=== PATIENT | female | born 1945 | race Caucasian/White ===

== ENCOUNTER 2019-03-30 20:11 | Emergency (ER) | payer MEDICARE, OTHER ==
[~2019-03-30] VITALS: Ht 162.6 cm; Wt 72.6 kg
--- NOTE | 2019-03-30 20:15 | NUR ---
pt here with " daughter". pt alert gcs 15. pt been c/o abd pain x 3 days had h/ohietel hernia. pt denies n/v/d/ and constipation. denies dyspnea and no acute sighns of dyspnea noted. pain rating 7. pt denies ua c/os. lungs cta bilaterally. abd soft and distended. pt has large hernia in mid abd. no pulsating massess noted. done logan pt at 2025.
--- NOTE | 2019-03-30 20:17 | NUR ---
in [facility] pt.
--- NOTE | 2019-03-30 20:34 | ED Abdominal Pain ---
General Chief Complaint: Abdominal/GI Problems Stated Complaint: UPPER ABD PAIN Nursing Triage Note: abd pain x 3 days h/o hietel hernia Sepsis Screen: No Definite Risk History of Present Illness Date Seen by Provider: Mar 30, 2019 Time Seen by Provider: 20:20 Initial Comments 73 year old female reports ambulatory for abdominal distention and pain. It has been present for 3 days and progressively getting more painful, pain a 7/10 currently. She took Ibuprofen 400 mg 1 hour ago. She ate breakfast and lunch, no associated nausea or vomiting. She had an umbilical ventral hernia repaired many years ago, no other abdominal surgeries. Timing/Duration: 3-4 Days Severity/Quality: Mild Location: Epigastric Radiation: No Radiation Activities at Onset: None Associated Symptoms: Denies Symptoms Allergies and Home Medications Allergies Coded Allergies: No Known Allergies (Verified Allergy, Unknown, 12/03/08) Patient Home Medication List Home Medication List Reviewed: Yes Review of Systems Review of Systems Constitutional: no symptoms reported, see HPI Gastrointestinal: See HPI, Abdomen Distended, Abdominal Pain; Denies Blood Streaked Stools, Denies Constipated, Denies Diarrhea, Denies Nausea, Denies Poor Appetite, Denies Rectal Bleeding, Denies Vomiting All Other Systems Reviewed Negative Unless Noted: Yes Past Wyynjac-Smxhgn-Psertk Hx Past Med/Social Hx: Reviewed Nursing Past Med/Soc Hx Patient Social History Alcohol Use: Occasionally Uses Recreational Drug Use: No Smoking Status: Current Everyday Smoker Recent Foreign Travel: No Contact w/Someone Who Travel: No Recent Infectious Disease Expo: No Physical Abuse: No Sexual Abuse: No Past Medical History Reproductive Disorders: No Physical Exam Vital Signs Vital Signs - First Documented 03/30/19 20:15 Temp 97.7 Pulse 64 Resp 16 B/P (MAP) 199/77 (117) Pulse Ox 99 O2 Delivery Room Air Capillary Refill : Less Than 3 Seconds Height/Weight/BMI Height: 5'4.00" Weight: 160lbs. oz. 72.922668ku; BMI Method:Stated General Appearance: WD/WN, no apparent distress HEENT: PERRL/EOMI, normal ENT inspection, TMs normal, pharynx normal Neck: non-tender, full range of motion, supple, normal inspection Respiratory: chest non-tender, lungs clear, normal breath sounds Cardiovascular: normal peripheral pulses, regular rate, rhythm Gastrointestinal: normal bowel sounds, soft, distended; No rebound; tenderness, hernia (epigastric, ventral. Obvious on exam when sitting upright, reduces when patient supine. Mild tenderness, nonpulsatile. ) Extremities: normal range of motion, non-tender, no pedal edema, normal ca pillary refill Neurologic/Psychiatric: no motor/sensory deficits, alert, normal mood/affect, oriented x 3 Progress/Results/Core Measures Results/Orders Lab Results Laboratory Tests Test 03/30/19 20:25 Range/Units White Blood Count 13.4 H 4.3-11.0 10^3/uL Red Blood Count 4.65 4.35-5.85 10^6/uL Hemoglobin 14.2 11.5-16.0 G/DL Hematocrit 42 35-52 % Mean Corpuscular Volume 91 80-99 FL Mean Corpuscular Hemoglobin 31 25-34 PG Mean Corpuscular Hemoglobin Concent 34 32-36 G/DL Red Cell Distribution Width 13.2 10.0-14.5 % Platelet Count 244 130-400 10^3/uL Mean Platelet Volume 10.5 H 7.4-10.4 FL Neutrophils (%) (Auto) 75 42-75 % Lymphocytes (%) (Auto) 17 12-44 % Monocytes (%) (Auto) 7 0-12 % Eosinophils (%) (Auto) 1 0-10 % Basophils (%) (Auto) 0 0-10 % Neutrophils # (Auto) 10.0 H 1.8-7.8 X 10^3 Lymphocytes # (Auto) 2.3 1.0-4.0 X 10^3 Monocytes # (Auto) 0.9 0.0-1.0 X 10^3 Eosinophils # (Auto) 0.2 0.0-0.3 10^3/uL Basophils # (Auto) 0.0 0.0-0.1 10^3/uL Sodium Level 139 135-145 MMOL/L Potassium Level 3.5 L 3.6-5.0 MMOL/L Chloride Level 104 98-107 MMOL/L Carbon Dioxide Level 24 21-32 MMOL/L Anion Gap 11 5-14 MMOL/L Blood Urea Nitrogen 15 7-18 MG/DL Creatinine 1.02 0.60-1.30 MG/DL Estimat Glomerular Filtration Rate 53 BUN/Creatinine Ratio 15 Glucose Level 167 H 70-105 MG/DL Calcium Level 9.6 8.5-10.1 MG/DL Corrected Calcium 9.5 8.5-10.1 MG/DL Total Bilirubin 0.4 0.1-1.0 MG/DL Aspartate Amino Transf (AST/SGOT) 11 5-34 U/L Alanine Aminotransferase (ALT/SGPT) 10 0-55 U/L Alkaline Phosphatase 89 40-136 U/L Total Protein 7.1 6.4-8.2 GM/DL Albumin 4.1 3.2-4.5 GM/DL Amylase Level 35 25-125 U/L Lipase 16 8-78 U/L My Orders Orders - HAROON HUANG Cbc With Automated Diff (03/30/19 20:30) Comprehensive Metabolic Panel (03/30/19 20:30) Ct Abdomen/Pelvis Wo (03/30/19 20:35) Tramadol Tablet (Ultram Tablet) (03/30/19 21:00) Amylase (03/30/19 21:17) Lipase (03/30/19 21:17) Medications Given in ED Current Medications Medications Dose Ordered Sig/Hayder Route Start Time Stop Time Status Last Admin Dose Admin Tramadol HCl 50 mg ONCE ONCE PO 03/30/19 21:00 03/30/19 21:01 DC 03/30/19 21:04 50 MG Vital Signs/I&O 03/30/19 20:15 Temp 97.7 Pulse 64 Resp 16 B/P (MAP) 199/77 (117) Pulse Ox 99 O2 Delivery Room Air Blood Pressure Mean: 117 Progress Progress Note : Time: 20:20 Progress Note Patient seen and evaluated. Will obtain labs and CT abd/pelvis. 2100 CT with no obvious signs of bowel obstruction or incarcerated hernia. Inflammation at patella pancreas, lipase normal. WBC 13 2130 patient reports improved pain since taking tramadol. Sitting upright and talking to family members. Discharge instructions and return precautions reviewed with her. Did discuss at length incarcerated hernia need for her to return to emergency department. Otherwise she'll see a general surgeon on outpatient basis. Diagnostic Imaging Diagonstic Imaging: CT Plain Films/CT/US/NM/MRI: abdomen, pelvis Comments NAME: ERWIN WISESIGRID [facility] REC#: [id number] PT STATUS: REG ER : 1945 PHYSICIAN: HAROON HUANG ADMIT DATE: 03/30/19/ER Draft Date of Exam:03/30/19 CT ABDOMEN/PELVIS WO PROCEDURE: CT abdomen and pelvis without contrast. TECHNIQUE: Multiple contiguous axial images were obtained through the abdomen and pelvis without the use of intravenous contrast. Auto Exposure Controls were utilized during the CT exam to meet ALARA standards for radiation dose reduction. INDICATION: Upper abdominal pain for three days. COMPARISON: None. FINDINGS: The lung bases are clear. The heart is normal in size. There is no pericardial effusion. The liver appears normal. There is a calcified 1.5 cm stone in the neck of the gallbladder. The spleen appears normal. The pancreas demonstrates mild edema about the pancreatic head. No peripancreatic fluid collections are seen. The adrenal glands appear normal. The kidneys demonstrate no hydronephrosis or calculi. No masses are seen. The appendix is normal. No dilated loops of bowel are seen. There is no free fluid or free air seen. There is diverticulosis of the sigmoid colon without diverticulitis. There is calcific atherosclerosis. No acute osseous abnormality is seen in the spine. There are multilevel degenerative changes. IMPRESSION: 1. Mild edema about the pancreatic head, concerning for acute pancreatitis. Please correlate with lipase. No fluid collections are seen. 2. Cholelithiasis. 3. Diverticulosis of the sigmoid colon without diverticulitis. Dictated on workstation # [id number] Dict: 03/30/192057 Trans: 03/30/192106 [facility] [id number] Interpreted by: JOHN BLAIR MD Electronically signed by: Reviewed: Reviewed by Me Departure Impression Primary Impression: Ventral hernia Qualified Codes: K43.9 - Ventral hernia without obstruction or gangrene Disposition: HOME, SELF-CARE Condition: Improved Departure-Patient Inst. Decision time for Depature: 21:40 Referrals: [facility] BRETT D DO SEGLIE, FLOYD R MD (PCP/Family) Primary Care Physician Patient Instructions: Abdominal Hernia (DC) Add. Discharge Instructions: Call Dr. Black or Jim on Tuesday for Evaluation: [phone] Continue to take your ibuprofen 400 mg every 8 hours as needed, for additional pain management U can do Tylenol 650 mg every 6 hours. If hernia becomes painful when ambulatory, wide flat and apply gentle pressure. You may wear a pelvic binder or abdominal support, if more comfortable. Return to emergency department if hernia becomes increasingly painful, your unable to pass gas, fever greater than 101, flulike symptoms or new concerns. All discharge instructions reviewed with patient and/or family. Voiced understanding. Copy Copies To 1: ROBBI TOLENTINO MD, AMY ARNP Mar 30, 2019 20:34
[2019-03-30 20:36] LABS: BASOPHILS % (AUTO) 0 % (0-10); EOSINOPHILS # (AUTO) 0.2 10^3/uL (0.0-0.3); EOSINOPHILS % (AUTO) 1 % (0-10); HEMATOCRIT 42 % (35-52); HEMOGLOBIN 14.2 G/DL (11.5-16.0); LYMPHOCYTES # (AUTO) 2.3 X 10^3 (1.0-4.0); LYMPHOCYTES % (AUTO) 17 % (12-44); MEAN CORPUSCULAR HEMOGLOBIN 31 PG (25-34); MEAN CORPUSCULAR HGB CONC 34 G/DL (32-36); MEAN CORPUSCULAR VOLUME 91 FL (80-99); MEAN PLATELET VOLUME 10.5 FL (7.4-10.4); MONOCYTES # (AUTO) 0.9 X 10^3 (0.0-1.0); MONOCYTES % (AUTO) 7 % (0-12); NEUTROPHILS % (AUTO) 75 % (42-75); PLATELET COUNT 244 10^3/uL (130-400); RED CELL DISTRIBUTION WIDTH 13.2 % (10.0-14.5); WHITE BLOOD COUNT 13.4 10^3/uL (4.3-11.0)
--- NOTE | 2019-03-30 20:37 | NUR ---
pt knows npo and ua to lab by me
[2019-03-30 20:56] LABS: ALBUMIN 4.1 GM/DL (3.2-4.5); BILIRUBIN,TOTAL 0.4 MG/DL (0.1-1.0); CALCIUM 9.6 MG/DL (8.5-10.1); CREATININE SERUM 1.02 MG/DL (0.60-1.30); POTASSIUM 3.5 MMOL/L (3.6-5.0); TOTAL PROTEIN 7.1 GM/DL (6.4-8.2)
--- NOTE | 2019-03-30 21:08 | Diagnostic Imaging Report ---
PROCEDURE: CT abdomen and pelvis without contrast. TECHNIQUE: Multiple contiguous axial images were obtained through the abdomen and pelvis without the use of intravenous contrast. Auto Exposure Controls were utilized during the CT exam to meet ALARA standards for radiation dose reduction. INDICATION: Upper abdominal pain for three days. COMPARISON: None. FINDINGS: The lung bases are clear. The heart is normal in size. There is no pericardial effusion. The liver appears normal. There is a calcified 1.5 cm stone in the neck of the gallbladder. The spleen appears normal. The pancreas demonstrates mild edema about the pancreatic head. No peripancreatic fluid collections are seen. The adrenal glands appear normal. The kidneys demonstrate no hydronephrosis or calculi. No masses are seen. The appendix is normal. No dilated loops of bowel are seen. There is no free fluid or free air seen. There is diverticulosis of the sigmoid colon without diverticulitis. There is calcific atherosclerosis. No acute osseous abnormality is seen in the spine. There are multilevel degenerative changes. IMPRESSION: 1. Mild edema about the pancreatic head, concerning for acute pancreatitis. Please correlate with lipase. No fluid collections are seen. 2. Cholelithiasis. 3. Diverticulosis of the sigmoid colon without diverticulitis. Dictated by: Dictated on workstation # [id number]
--- NOTE | 2019-03-30 21:09 | NUR ---
pt remains alert gcs 15. family remains in the room. abd pain continues rating 7. pt denies nausea and no v/d noted in er visit thus far. denies dyspnea and no acute sighns of dyspnea noted. denies back pain. no pulsating massess noted in abd. bp machine is 207/84 ausc hr 56 reg ausc resp 16 normal recheck temp 98..8 p ox r/.a is 96.
[2019-03-30 21:33] LABS: AMYLASE 35 U/L (25-125); LIPASE 16 U/L (8-78)
--- NOTE | 2019-03-30 21:58 | NUR ---
dr rueda with d/c bp 191/80.
[2019-03-30 22:03] VITALS: BP 191/80
--- NOTE | 2019-03-30 22:03 | NUR ---
d/c instructions to pt. told to read all papers. no scripts given. pt left ambulatory with family. pt knows f/u. i went over the handtyped by information on the chart. iv d/cd by me prior to d/c.
== END 2019-03-30 22:03 | disposition home or self-care (01) ==
LOC: EDUNIT# 20:11 → ER 20:12
DX: K43.9 Ventral hernia without obstruction or gangrene (principal); F17.200 Nicotine dependence, unspecified, uncomplicated; Z98.890 Other specified postprocedural states
CPT/HCPCS: 36415; 74176; 80053; 82150; 83690; 85025

== ENCOUNTER 2019-05-15 21:31 | Emergency (ER) | payer MEDICARE, OTHER ==
[~2019-05-15] VITALS: Ht 162.6 cm; Wt 71.2 kg
[2019-05-15] MEDS ORDERED: RX-MUPIROCIN (BACTROBAN) 2% OINT 22 GM TUBE TOP STA (22:00)
--- NOTE | 2019-05-15 22:05 | ED Fall/Injury ---
General Stated Complaint: FALL,KNEE LAC Source: patient History of Present Illness Date Seen by Provider: May 15, 2019 Time Seen by Provider: 21:55 Initial Comments PT ARRIVES VIA POV, AMBULATES IN ON HER OWN STATES SHE MISSED THE BOTTOM STEP AND FELL FORWARD, LANDING ON HER KNEES ONTO CONCRETE OCCURRED AT 2115 DID NOT HIT HEAD AND NO LOSS OF CONSCIOUSNESS C/O BILATERAL KNEE ABRASIONS EARLIER SHE HAD PAIN TO LEFT ANKLE, BUT STATES IT DOES NOT HURT ANYMORE DENIES ANY OTHER AREAS OF PAIN OR INJURY LAST TETANUS < 5 YEARS AGO PCP: DR. TOLENTINO Allergies and Home Medications Allergies Coded Allergies: No Known Allergies (Verified Allergy, Unknown, 12/03/08) Patient Home Medication List Home Medication List Reviewed: Yes Review of Systems Review of Systems Constitutional: no symptoms reported Ears, Nose, Mouth, Throat: no symptoms reported Respiratory: no symptoms reported Cardiovascular: no symptoms reported Gastrointestinal: no symptoms reported Genitourinary: no symptoms reported Musculoskeletal: see HPI Skin: see HPI Psychiatric/Neurological: No Symptoms Reported; Denies Numbness, Denies Paresthesia, Denies Tingling, Denies Weakness Past Pemwhtz-Gyeiom-Eoyeuq Hx Patient Social History Alcohol Use: Occasionally Uses Recreational Drug Use: No Smoking Status: Current Everyday Smoker (1 PPD) Type Used: Cigarettes Recent Foreign Travel: No Contact w/Someone Who Travel: No Recent Hopitalizations: Yes (as previously stated) Past Medical History Surgeries: Yes (CARDIAC CATHS --STENT X 1; HYST/BSO; BLADDER SURGERY; HERNIA REPAIR ) Abdominal, Bladder Surgery, Cardiac, Coronary Stent, Hysterectomy, Oophorectomy Respiratory: No Cardiac: Yes (CAD--CARDIAC CATHS WITH STENT X 1 ) Coronary Artery Disease, High Cholesterol, Hypertension Neurological: No Reproductive Disorders: No 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 oz. 72.188954mx; BMI Method:Stated General Appearance: WD/WN, no apparent distress, other (STRONG ODOR OF CIGARETTES; DOES NOT APPEAR TO BE IN ANY DISCOMFORT OR DISTRESS; AMBULATES WITHOUT DIFFIUCLTY) HEENT: PERRL/EOMI Neck: non-tender, full range of motion, supple, normal inspection Cardiovascular: normal peripheral pulses, regular rate, rhythm, no edema, no JVD, no murmur Respiratory: chest non-tender, normal breath sounds, no respiratory distress, no accessory muscle use Peripheral Pulses: 2+ Dorsalis Pedis (R), 2+ Left Dors-Pedis (L), 2+ Radial Pulses (R), 2+ Radial Pulses (L) Gastrointestinal: normal bowel sounds, non tender, soft Back: normal inspection, no CVA tenderness, no vertebral tenderness Extremities: normal range of motion, no pedal edema, no calf tenderness, normal capillary refill, other (ABRASIONS TO BOTH KNEES. NO BONY TENDERNESS. FULL ROM. MOTOR/SENSORY/VASCULAR INTACT; LEFT LATERAL ANKLE WITH MILD SWELLNG. NON-TENDER. 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 Departure Impression Primary Impression: Fall down steps Additional Impressions: BILATERAL KNEE ABRASIONS Left ankle injury BILATERAL KNEE CONTUSIONS Disposition: 01 HOME, SELF-CARE Condition: Stable Departure-Patient Inst. Referrals: ROBBI TOLENTINO MD (PCP/Family) Primary Care Physician Patient Instructions: Ankle Sprain (DC), Contusion (DC), Preventing Falls in the Older Adult, Skin Abrasions (DC), Wound Care (DC) Add. Discharge Instructions: CLEAN WOUNDS 2-3 TIMES A DAY WITH ANTIBACTERIAL SOAP AND WATER, APPLY ANTIBIOTIC OINTMENT AND FRESH DRESSING AFTER EACH CLEANING TYLENOL AND MOTRIN NEEDED FOR PAIN ICE TO SORE AREAS AT 20 MINUTE INTERVALS FOLLOW UP WITH DR. TOLENTINO NEEDED AMIRAH BEARD DO May 15, 2019 22:05
[2019-05-15 22:24] VITALS: BP 178/87
== END 2019-05-15 22:26 | disposition home or self-care (01) ==
LOC: EDUNIT# 21:31 → ER 21:32
DX: S80.01XA Contusion of right knee, initial encounter (principal); S80.02XA Contusion of left knee, initial encounter; S99.912A Unspecified injury of left ankle, initial encounter; I10 Essential (primary) hypertension; I25.10 Atherosclerotic heart disease of native coronary artery without angina pectoris; E78.00 Pure hypercholesterolemia, unspecified; F41.9 Anxiety disorder, unspecified; F17.210 Nicotine dependence, cigarettes, uncomplicated; Z95.5 Presence of coronary angioplasty implant and graft; Z90.710 Acquired absence of both cervix and uterus; Z90.722 Acquired absence of ovaries, bilateral; W10.9XXA Fall (on) (from) unspecified stairs and steps, initial encounter
CPT/HCPCS: 99283

== ENCOUNTER → 2019-05-16 | Outpatient (CLI) | payer MEDICARE, OTHER ==
--- NOTE | 2019-05-16 13:07 | Diagnostic Imaging Report ---
Indication: Left ankle pain 3 views of left ankle show some soft tissue swelling. There are tiny bone fragments on the dorsal aspect of the talus and navicular could be small cortical avulsions but not necessarily acute. Impression: Tiny calcifications adjacent to the cortex of the dorsal talus and navicular could be small cortical avulsion fractures of indeterminate age. No ankle mortise is preserved. Talar dome, tibia and fibula are unremarkable. Dictated by: Dictated on workstation # [id number]
--- NOTE | 2019-05-16 13:27 | Diagnostic Imaging Report ---
CLINICAL INDICATION: Patient fell last night. Patient has right big toe and left lateral bruising. EXAM: X-ray of both feet, 3 views each. COMPARISON: X-ray of the left ankle dated 05/16/2019. FINDINGS: Left foot: There are hypertrophic calcaneal spurs involving the plantar attachment region. There is spurring of the dorsal midfoot. The small flecks of calcification dorsal to the midfoot, better seen on the ankle x-rays, are not as well defined on this exam. There is mild spurring of the first MTP joint. There is swelling involving the soft tissues adjacent to the metatarsals. Otherwise, the remainder of the left foot is unremarkable. Right foot: The right foot shows no acute fracture or dislocation. There are moderately hypertrophic spurs and moderate joint space narrowing involving the first MTP joint. There are mildly hypertrophic calcaneal spurs at the plantar and Achilles attachment. There is mild spurring of the tibiotalar joint dorsally. IMPRESSION: 1. The small flecks of calcification seen dorsal to the left midfoot are better seen on the comparison x-ray of the left ankle. These may represent small avulsion injuries. There is soft tissue swelling adjacent to the left foot. 2. Otherwise, the x-rays of both feet show no acute fracture or dislocation. 3. There is degenerative disease of both feet. Dictated by: Dictated on workstation # [id number]
== END ==
LOC: RAD 12:26
PROVIDERS: ATTEND Nurse Practitioner Family
DX: M25.872 Other specified joint disorders, left ankle and foot (principal); W10.2XXA Fall (on)(from) incline, initial encounter
CPT/HCPCS: 73610

== ENCOUNTER → 2020-07-18 | Outpatient (CLI) | payer MEDICARE, OTHER ==
[2020-07-18 16:06] LABS: ABSOLUTE RETIC # 59 10e9/uL (24-90); BASOPHILS % (AUTO) 1 % (0-10); EOSINOPHILS # (AUTO) 0.1 10^3/uL (0.0-0.3); EOSINOPHILS % (AUTO) 1 % (0-10); HEMATOCRIT 41 % (35-52); HEMOGLOBIN 13.6 g/dL (11.5-16.0); LYMPHOCYTES # (AUTO) 2.6 10^3/uL (1.0-4.0); LYMPHOCYTES % (AUTO) 33 % (12-44); MEAN CORPUSCULAR HEMOGLOBIN 31 pg (25-34); MEAN CORPUSCULAR HGB CONC 33 g/dL (32-36); MEAN CORPUSCULAR VOLUME 94 fL (80-99); MONOCYTES # (AUTO) 0.5 10^3/uL (0.0-1.0); MONOCYTES % (AUTO) 7 % (0-12); NEUTROPHILS # (AUTO) 4.7 10^3/uL (1.8-7.8); NEUTROPHILS % (AUTO) 59 % (42-75); PLATELET COUNT 227 10^3/uL (130-400); RETICULOCYTE % 1.35 % (0.50-2.40)
[2020-07-18 16:46] LABS: BAND NEUTROPHILS 0 %; BASOPHILS % (MANUAL) 0 %; EOSINOPHILS % (MANUAL) 1 %; LYMPHOCYTES % (MANUAL) 37 %; MONOCYTES % (MANUAL) 3 %; NEUTROPHILS % (MANUAL) 59 %; RBC MORPH NORMAL
== END ==
LOC: LAB 15:41
PROVIDERS: ATTEND Internal Medicine
DX: D72.829 Elevated white blood cell count, unspecified (principal)
CPT/HCPCS: 36415; 85007; 85027; 85045

== ENCOUNTER 2021-01-12 11:15 | Outpatient (RCR) | payer MEDICARE, OTHER | END 2021-02-24 10:03 | disposition home or self-care (01) | PROVIDERS: ATTEND Internal Medicine | DX: M54.6 Pain in thoracic spine (principal) ==

== ENCOUNTER 2021-05-06 10:52 | Outpatient (CLI) | payer MEDICARE, OTHER | END 2021-05-06 11:17 | LOC: SLEEP 10:52 | PROVIDERS: ATTEND Otolaryngology Otolaryngology/Facial Plastic Surgery | DX: G47.33 Obstructive sleep apnea (adult) (pediatric) (principal); G47.10 Hypersomnia, unspecified | CPT/HCPCS: G0399 ==

== ENCOUNTER 2021-06-14 23:44 | Inpatient (IN) | payer MEDICARE, OTHER ==
[~2021-06-14] VITALS: Ht 162 cm; Wt 72.0 kg
--- NOTE | 2021-06-15 00:44 | ED Abdominal Pain ---
General Stated Complaint: ABD PAIN / N/V Source of Information: Patient Exam Limitations: No Limitations History of Present Illness Date Seen by Provider: Jun 15, 2021 Time Seen by Provider: 00:30 Initial Comments Here with acute onset of increasing abdominal distention today. Has passed a scant amount of gas and had only very small stool today. Last normal bowel movement yesterday. Does have abdominal hernia. States that her abdomen is larger but this is more distended and larger than typical. She did take her medicines tonight. Noted to be somewhat hypertensive on arrival and she states that that she usually related to being in the ER. Denies fever chills. She is not vaccinated for COVID-19. She does not take any vaccinations. Timing/Duration: 12 Hours Severity/Quality: Moderate, Aching (Low background aching), Cramping (Rhythmic every 5 to 10-minute significant cramping) Location: Generalized Abdomen Radiation: No Radiation Activities at Onset: None Modifying Factors: Improves With Vomiting Associated Symptoms: No Back Pain, No Chest Pain, No Fever/Chills; Nausea/Vomiting, Swelling/Mass in Abdomen; No Weakness Allergies and Home Medications Allergies Coded Allergies: NKANo Known Allergies (Verified Allergy, Unknown, 12/03/08) Patient Home Medication List Home Medication List Reviewed: Yes Review of Systems Review of Systems Constitutional: see HPI; No chills, No fever EENTM: No Symptoms Reported Respiratory: No Symptoms Reported Cardiovascular: Denies Chest Pain, Denies Edema Gastrointestinal: Abdominal Pain, Nausea, Vomiting Genitourinary: No Symptoms Reported Musculoskeletal: no symptoms reported All Other Systems Reviewed Negative Unless Noted: Yes Past Mkqzjqe-Guuawy-Ztvtyb Hx Patient Social History Tobacco Use?: No Substance use?: No Alcohol Use?: Yes Past Medical History Surgeries: Yes (CARDIAC CATHS --STENT X 1; HYST/BSO; BLADDER SURGERY; HERNIA REPAIR ) Abdominal, Bladder Surgery, Cardiac, Coronary Stent, Hysterectomy, Oophorectomy Respiratory: No Cardiac: Yes (CAD--CARDIAC CATHS WITH STENT X 1 ) Coronary Artery Disease, High Cholesterol, Hypertension Neurological: No 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 oz. 71.249191nu; BMI Method:Stated General Appearance: WD/WN, mild distress HEENT: PERRL/EOMI, pharynx normal Neck: full range of motion, supple Respiratory: lungs clear, normal breath sounds Cardiovascular: regular rate, rhythm, no murmur Gastrointestinal: no pulsatile mass, distended; No guarding, No rebound; tenderness (Diffuse mild) Extremities: non-tender, normal inspection Back: normal inspection, no CVA tenderness, no vertebral tenderness Neurologic/Psychiatric: alert, oriented x 3 Skin: normal color, warm/dry Progress/Results/Core Measures Results/Orders Lab Results Laboratory Tests Test 06/15/21 00:20 06/15/21 02:20 Range/Units White Blood Count 13.7 H 4.3-11.0 10^3/uL Red Blood Count 5.11 3.80-5.11 10^6/uL Hemoglobin 16.0 11.5-16.0 g/dL Hematocrit 48 35-52 % Mean Corpuscular Volume 94 80-99 fL Mean Corpuscular Hemoglobin 31 25-34 pg Mean Corpuscular Hemoglobin Concent 33 32-36 g/dL Red Cell Distribution Width 12.4 10.0-14.5 % Platelet Count 281 130-400 10^3/uL Mean Platelet Volume 11.1 9.0-12.2 fL Immature Granulocyte % (Auto) 1 % Neutrophils (%) (Auto) 70 42-75 % Lymphocytes (%) (Auto) 23 12-44 % Monocytes (%) (Auto) 6 0-12 % Eosinophils (%) (Auto) 1 0-10 % Basophils (%) (Auto) 0 0-10 % Neutrophils # (Auto) 9.6 H 1.8-7.8 10^3/uL Lymphocytes # (Auto) 3.1 1.0-4.0 10^3/uL Monocytes # (Auto) 0.8 0.0-1.0 10^3/uL Eosinophils # (Auto) 0.1 0.0-0.3 10^3/uL Basophils # (Auto) 0.0 0.0-0.1 10^3/uL Immature Granulocyte # (Auto) 0.1 0.0-0.1 10^3/uL Sodium Level 141 135-145 MMOL/L Potassium Level 3.4 L 3.6-5.0 MMOL/L Chloride Level 106 98-107 MMOL/L Carbon Dioxide Level 22 21-32 MMOL/L Anion Gap 13 5-14 MMOL/L Blood Urea Nitrogen 22 H 7-18 MG/DL Creatinine 1.05 0.60-1.30 MG/DL Estimat Glomerular Filtration Rate 51 BUN/Creatinine Ratio 21 Glucose Level 141 H 70-105 MG/DL Calcium Level 10.0 8.5-10.1 MG/DL Corrected Calcium 9.8 8.5-10.1 MG/DL Magnesium Level 2.3 1.6-2.4 MG/DL Total Bilirubin 0.6 0.1-1.0 MG/DL Aspartate Amino Transf (AST/SGOT) 18 5-34 U/L Alanine Aminotransferase (ALT/SGPT) 16 0-55 U/L Alkaline Phosphatase 87 40-136 U/L C-Reactive Protein High Sensitivity 0.39 0.00-0.50 MG/DL Total Protein 7.7 6.4-8.2 GM/DL Albumin 4.2 3.2-4.5 GM/DL Urine Color YELLOW Urine Clarity CLEAR Urine pH 5.5 5-9 Urine Specific Welches 1.025 H 1.016-1.022 Urine Protein NEGATIVE NEGATIVE Urine Glucose (UA) NEGATIVE NEGATIVE Urine Ketones TRACE H NEGATIVE Urine Nitrite NEGATIVE NEGATIVE Urine Bilirubin NEGATIVE NEGATIVE Urine Urobilinogen 0.2 < = 1.0 MG/DL Urine Leukocyte Esterase NEGATIVE NEGATIVE Urine RBC (Auto) NEGATIVE NEGATIVE Urine RBC NONE /HPF Urine WBC NONE /HPF Urine Squamous Epithelial Cells 25-50 H /HPF Urine Crystals NONE /LPF Urine Bacteria TRACE /HPF Urine Casts NONE /LPF Urine Mucus MODERATE H /LPF Urine Culture Indicated NO My Orders Orders - AAKASH GROVE MD Cbc With Automated Diff (06/15/21 00:38) Comprehensive Metabolic Panel (06/15/21 00:38) Hs C Reactive Protein (06/15/21 00:38) Magnesium (06/15/21 00:38) Ua Culture If Indicated (06/15/21 00:38) Ed Iv/Invasive Line Start (06/15/21 00:38) Ns Iv 1000 Ml (Sodium Chloride 0.9%) (06/15/21 00:45) Ct Abdomen/Pelvis W (06/15/21 01:39) Iohexol Injection (Omnipaque 350 Mg/Ml 1 (06/15/21 02:45) Ns (Ivpb) (Sodium Chloride 0.9% Ivpb Bag (06/15/21 02:45) Lorazepam Injection (Ativan Injection) (06/15/21 03:15) Benzocaine Extension Tube (Hurricaine Ex (06/15/21 03:38) Hydralazine Injection (Apresoline Inject (06/15/21 04:15) Medications Given in ED Current Medications Medications Dose Ordered Sig/Hayder Route Start Time Stop Time Status Last Admin Dose Admin Iohexol 75 ml ONCE ONCE IV 06/15/21 02:45 06/15/21 02:46 DC 06/15/21 02:36 75 ML Sodium Chloride 80 ml ONCE ONCE IV 06/15/21 02:45 06/15/21 02:46 DC 06/15/21 02:36 80 ML Sodium Chloride 1,000 ml @ 0 mls/hr Q0M ONCE IV 06/15/21 00:45 06/15/21 00:46 DC 06/15/21 01:07 0 MLS/HR Vital Signs/I&O 06/15/21 00:20 Temp 36.6 Pulse 79 Resp 20 B/P (MAP) 209/99 (135) Pulse Ox 95 O2 Delivery Room Air Progress Progress Note : Progress Note Seen and evaluated. IV, labs, normal saline 1 L bolus ordered. Monitor patient. 0331: CT abdomen pelvis ordered and does show a small bowel obstruction. I did discuss the case with Dr. Gu and he agrees to see patient in consult. 0356: I did discuss the case with Dr. Modi. We have placed NG tube. Ativan 1 mg IV given to assist with placement. Patient is quite hypertensive still. Hydralazine [address] Modi agrees to accept patient for admission, inpatient status. Patient on intermittent low to medium wall suction and this has improved her symptoms. Findings and concerns discussed with patient and family who agree with plan. Diagnostic Imaging Diagonstic Imaging: CT Plain Films/CT/US/NM/MRI: abdomen, pelvis Comments Distended fluid-filled stomach and multiple fluid-filled distended loops of proximal and mid small bowel associated with decompressed distal small bowel, consistent with at least partial obstruction. 2.7 cm left ovarian cyst, increased since prior study. Further evaluation on outpatient basis with pelvic ultrasound is recommended. Departure Communication (Admissions) Time/Spoke to Admitting Phy: 03:56 Time/Spoke to Consulting Phy: 03:31 Impression Primary Impression: Small bowel obstruction Disposition: ADMITTED INPATIENT Condition: Stable Admissions Decision to Admit Reason: Admit from ER (General) Decision to Admit/Date: Jun 15, 2021 Time/Decision to Admit Time: 03:31 Departure-Patient Inst. Referrals: BERTO ALVAREZ MD (PCP) Primary Care Physician AAKASH GROVE MD Jun 15, 2021 00:44
[2021-06-15] MEDS ORDERED: NS IV 1000 ML 1,000 ML IV ONE (00:45)
[2021-06-15 01:06] LABS: BASOPHILS % (AUTO) 0 % (0-10); EOSINOPHILS # (AUTO) 0.1 10^3/uL (0.0-0.3); EOSINOPHILS % (AUTO) 1 % (0-10); HEMATOCRIT 48 % (35-52); LYMPHOCYTES # (AUTO) 3.1 10^3/uL (1.0-4.0); LYMPHOCYTES % (AUTO) 23 % (12-44); MEAN CORPUSCULAR HEMOGLOBIN 31 pg (25-34); MEAN CORPUSCULAR HGB CONC 33 g/dL (32-36); MEAN CORPUSCULAR VOLUME 94 fL (80-99); MEAN PLATELET VOLUME 11.1 fL (9.0-12.2); MONOCYTES # (AUTO) 0.8 10^3/uL (0.0-1.0); MONOCYTES % (AUTO) 6 % (0-12); NEUTROPHILS # (AUTO) 9.6 10^3/uL (1.8-7.8); NEUTROPHILS % (AUTO) 70 % (42-75); PLATELET COUNT 281 10^3/uL (130-400); WHITE BLOOD COUNT 13.7 10^3/uL (4.3-11.0)
[2021-06-15 01:13] LABS: ALBUMIN 4.2 GM/DL (3.2-4.5); POTASSIUM 3.4 MMOL/L (3.6-5.0)
[2021-06-15 01:15] LABS: TOTAL PROTEIN 7.7 GM/DL (6.4-8.2)
[2021-06-15 01:17] LABS: BILIRUBIN,TOTAL 0.6 MG/DL (0.1-1.0)
[2021-06-15 01:19] LABS: CREATININE SERUM 1.05 MG/DL (0.60-1.30)
[2021-06-15 01:22] LABS: MAGNESIUM 2.3 MG/DL (1.6-2.4)
[2021-06-15 02:30] LABS: BILIRUBIN,URINE NEGATIVE (NEGATIVE); CLARITY,URINE CLEAR; COLOR,URINE YELLOW; GLUCOSE, URINE (UA) NEGATIVE (NEGATIVE); KETONES,URINE TRACE (NEGATIVE); LEUKOCYTE ESTERASE ,URINE NEGATIVE (NEGATIVE); NITRITE,URINE NEGATIVE (NEGATIVE); PH,URINE 5.5 (5-9); PROTEIN,URINE NEGATIVE (NEGATIVE)
[2021-06-15 02:41] LABS: BACTERIA,URINE TRACE /HPF; SQUAMOUS EPITHELIAL CELL,UR 25-50 /HPF
[2021-06-15] MEDS ORDERED: NS 100 ML (IVPB) BAG IV ONE (02:45)
[2021-06-15] MEDS ORDERED: IOHEXOL 350 MG/ML 100 ML (OMNIPAQUE 350) VIAL IV ONE (02:45)
[2021-06-15] MEDS ORDERED: LORazepam INJ 2 MG/ML (ATIVAN) VIAL IVP ONE (03:15)
[2021-06-15] MEDS ORDERED: HURRICAINE EXT TUBE (BENZOCAINE) ONE (03:38)
[2021-06-15] MEDS ORDERED: hydrALAZINE (APESOLINE) 20 MG/ML VIAL IV ONE (04:15)
[2021-06-15 04:36] VITALS: BP 164/65
[2021-06-15] MEDS ORDERED: ONDANSETRON 4 MG/2 ML (SDV) Z0FRAN IV PRN (05:00)
[2021-06-15] MEDS ORDERED: LORazepam INJ 2 MG/ML (ATIVAN) VIAL IV PRN (05:00)
[2021-06-15] MEDS: LACTATED RINGERS 1,000 ML IV SCH ×3 (05:30→21:37)
--- NOTE | 2021-06-15 07:14 | Diagnostic Imaging Report ---
PROCEDURE: CT abdomen and pelvis with contrast. TECHNIQUE: Multiple contiguous axial images were obtained through the abdomen and pelvis after administration of intravenous contrast. Auto Exposure Controls were utilized during the CT exam to meet ALARA standards for radiation dose reduction. All CT scans use one or more of the following dose optimizing techniques: automated exposure control, MA and/or KvP adjustment based on patient size and exam type or iterative reconstruction. INDICATION: Abdominal pain and distention, nausea and vomiting. CORRELATION STUDY: None. FINDINGS: Examination compromised with some motion artifact. LOWER THORAX: Clear. LIVER: Unremarkable. GALLBLADDER: 14 mm gallstone. No bile duct dilatation. SPLEEN: Unremarkable. PANCREAS: Unremarkable. ADRENAL GLANDS: Unremarkable. KIDNEYS: Approximately 11 mm mid upper pole left renal cyst. No hydronephrosis. ABDOMINAL AORTA: Moderate atherosclerotic calcification and plaque. Nonaneurysmal. GASTROINTESTINAL TRACT: Stomach is rather distended and fluid-filled. Multiple fluid-filled distended small bowel is present. Appears to be more decompressed distal small bowel consistent with at least partial obstruction. Some of the proximal decompressed loops of bowel demonstrate some wall thickening. Colonic diverticulosis without evidence for acute diverticulitis. No evidence for appendicitis. Small amount of edema in the mesentery. No significant free fluid or free air. URINARY BLADDER: Decompressed. Likely prior bladder suspension surgery. REPRODUCTIVE: Approximately 2.6 cm left ovarian cyst, increased in size from prior. OSSEOUS STRUCTURES: Mild advanced degenerative changes lower thoracic spine. OTHER: None. IMPRESSION: 1. Distended fluid-filled stomach and multiple fluid-filled loops of distended small bowel. There appears to be decompressed but somewhat thickened segments of small bowel. Findings are consistent with at least partial obstruction. Etiology of the thickened small bowel is indeterminate. 2. Left ovarian cyst appearing increased from prior. Nonemergent follow-up pelvic ultrasound imaging is recommended. Initial report was provided by [facility]. Dictated by: Dictated on workstation # [id number]
[2021-06-15 08:31] VITALS: BP 180/77
--- NOTE | 2021-06-15 08:55 | History & Physical-Hospitalist ---
History of Present Illness HPI/Chief Complaint 75 yo female admitted from ED d/t diffuse abdominal pain that started last noc and was not relieved by BM. Pt reports pain is currently 0/10, but at its worst is a 7/10. Last BM was yesterday around 1700 and was small and solid. Pt denies passing gas. Pt reports hx of constipation and abdominal hernia. Pt states she last ate at 1900 last noc and currently does not have an appetite. Denies N/V/D. Source: patient Exam Limitations: no limitations Date Seen 06/15/21 Time Seen by a Provider: 08:30 Attending Physician Bri Modi MD PCP Lenin Nye MD Referring Physician Date of Admission Jun 15, 2021 at 04:07 Home Medications & Allergies Home Medications Reviewed patient Home Medication Reconciliation performed by pharmacy medication reconciliations fill technician and/or nursing. Patients Allergies have been reviewed. Allergies Allergies Coded Allergies NKANo Known Allergies (Verified Allergy, Unknown, 12/03/08) Past Sdyyajh-Ncbpmx-Ylxlxz Hx Patient Social History Tobacco Use?: Yes Tobacco type used: Cigarettes, Pipe Smoking Status: Current Everyday Smoker Use of E-Cig and/or Vaping dev: No Substance use?: No Alcohol Use?: No Pt feels they are or have been: No Immunizations Up To Date First/Initial COVID19 Vaccinat: NONE Tetanus Booster (TDap): Unknown Hepatitis A: Yes Hepatitis B: Yes Current Status Advance Directives: Yes Advance Directive Location: Family to bring in copy Communicates: Verbally Primary Language: Kyrgyz Preferred Spoken Language: Kyrgyz Is interpretation needed?: No Implanted or Applied Medical D: None Past Medical History Surgeries: Abdominal, Bladder Surgery, Cardiac, Coronary Stent, Hysterectomy, Oophorectomy Coronary Artery Disease, High Cholesterol, Hypertension 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, 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 Chronic Back Pain Anxiety Blood Disorders: No Family Medical History Reviewed Nursing Family Hx Review of Systems Constitutional: No chills, No dizziness, No fever; malaise, other EENTM: no symptoms reported Respiratory: cough (since last noc), phlegm; No short of breath Cardiovascular: no symptoms reported Gastrointestinal: abdominal pain (diffuse); No diarrhea; loss of appetite; No nausea, No vomiting Genitourinary: no symptoms reported Musculoskeletal: joint pain (chronic arthritis); No muscle pain, No muscle stiffness, No muscle weakness Psychiatric/Neurological: Anxiety (currently managed with medication) Physical Exam Physical Exam Vital Signs Vital Signs - First Documented 06/15/21 00:20 Temp 36.6 Pulse 79 Resp 20 B/P (MAP) 209/99 (135) Pulse Ox 95 O2 Delivery Room Air Capillary Refill : Less Than 3 Seconds Height, Weight, BMI Height: 5'4.00" Weight: 157lbs. oz. 71.921951ip; 27.43 BMI Method:Stated HEENT: PERRL/EOMI, TMs Normal Neck: Full Range of Motion, Normal Inspection Respiratory: Chest Non Tender, No Accessory Muscle Use, No Respiratory Distress, Crackles (bilateral lower lobes) Cardiovascular: Regular Rate, Rhythm, No Edema, No Murmur, Normal Peripheral Pulses Gastrointestinal: No Organomegaly, No Pulsatile Mass, Non Tender, Soft, Abnormal Bowel Sounds (hypoactive in lower quadrants bilaterally), Distended, Hernia (midline epigastric region), Mass Back: Normal Inspection Extremity: Normal Capillary Refill, Normal Inspection, Normal Range of Motion, Non Tender, No Pedal Edema Neurologic/Psychiatric: Alert, Oriented x3, No Motor/Sensory Deficits, Normal Mood/Affect, hatch boss II-XII Norm as Tested Skin: Normal Color, Warm/Dry Results Results/Procedures Labs Laboratory Tests 06/15/21 00:20 Patient resulted labs reviewed. Assessment/Plan Admission Diagnosis Small Bowel Obstruction Assessment and Plan Small Bowel Obstruction Hypertension Hypokalemic Leukocytosis Hyperlipidemia Coronary Artery Disease Anxiety Left Ovarian Cyst Small Bowel Obstruction -Distended fluid-filled stomach and multiple fluid-filled distended loops of proximal and mid small bowel associated with decompressed distal small bowel, consistent with at least partial obstruction. 2.7 cm left ovarian cyst, increased since prior study. Further evaluation on outpatient basis with pelvic ultrasound is recommended. -NG tube placed -NPO -Dr. Modi consulted Hypertension -Currently on Hydralazine Hypokalemia - Leukocytosis -Likely d/t SBO, will continue to monitor Hyperlipidemia - Coronary Artery Disease - Anxiety -Well managed with Lorazepam Left Ovarian Cyst -F/u outpt for pelvic ultrasound DVT ppx with SCD's, GI ppx with Protonix GERMÁN HALL MED STUDENT Jun 15, 2021 08:55
[2021-06-15] MEDS: hydrALAZINE (APESOLINE) 20 MG/ML VIAL IV PRN ×2 (10:36→17:19)
[2021-06-15] MEDS ORDERED: PANTOPRAZOLE 40 MG (PROTONIX) VIAL ONE (10:37)
[2021-06-15] MEDS: PANTOPRAZOLE 40 MG (PROTONIX) VIAL IV SCH (10:40)
--- NOTE | 2021-06-15 10:46 | Consultation - Hospitalist ---
GERMÁN HALL A MED STUDENT 06/15/21 1046: HPI History of Present Illness: HPI/Chief Complaint 75 yo female admitted from ED d/t diffuse abdominal pain that started last noc and was not relieved by BM. Pt reports pain is currently 0/10, but at its worst is a 7/10. Last BM was yesterday around 1700 and was small and solid. Pt denies passing gas. Pt reports hx of constipation and abdominal hernia. Pt states she last ate at 1900 last noc and currently does not have an appetite. Denies N/V/D. Source: patient Exam Limitations: no limitations Date Seen 06/15/21 Attending Physician Bri Modi MD PCP Lenin Nye MD Referring Physician Date of Admission Jun 15, 2021 at 04:07 Home Medications & Allergies Home Medications Reviewed patient Home Medication Reconciliation performed by pharmacy medication reconciliations photovoltaic testing technician and/or nursing. Patients Allergies have been reviewed. Allergies Allergies Coded Allergies NKANo Known Allergies (Verified Allergy, Unknown, 12/03/08) Past Ndjwxtb-Ystipb-Kpdveo Hx Patient Social History Tobacco Use?: Yes Tobacco type used: Cigarettes, Pipe Smoking Status: Current Everyday Smoker Use of E-Cig and/or Vaping dev: No Substance use?: No Alcohol Use?: No Pt feels they are or have been: No Immunizations Up To Date First/Initial COVID19 Vaccinat: NONE Tetanus Booster (TDap): Unknown Hepatitis A: Yes Hepatitis B: Yes Current Status Advance Directives: Yes Advance Directive Location: Family to bring in copy Communicates: Verbally Primary Language: Qatari Preferred Spoken Language: Qatari Is interpretation needed?: No Implanted or Applied Medical D: None Past Medical History Surgeries: Abdominal, Bladder Surgery, Cardiac, Coronary Stent, Hysterectomy, Oophorectomy Coronary Artery Disease, High Cholesterol, Hypertension 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, 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 Chronic Back Pain Anxiety Blood Disorders: No Family Medical History Reviewed Nursing Family Hx Review of Systems Constitutional: malaise EENTM: no symptoms reported Respiratory: cough, phlegm Cardiovascular: no symptoms reported Gastrointestinal: see HPI, abdominal pain (RUQ); No diarrhea, No other Genitourinary: no symptoms reported Musculoskeletal: joint pain Skin: no symptoms reported Psychiatric/Neurological: Anxiety Physical Exam Physical Exam Vital Signs Vital Signs - First Documented 06/15/21 00:20 Temp 36.6 Pulse 79 Resp 20 B/P (MAP) 209/99 (135) Pulse Ox 95 O2 Delivery Room Air Capillary Refill : Less Than 3 Seconds Height, Weight, BMI Height: 5'4.00" Weight: 157lbs. oz. 71.539676qj; 27.43 BMI Method:Stated General Appearance: No Apparent Distress, WD/WN HEENT: PERRL/EOMI, TMs Normal Neck: Full Range of Motion, Normal Inspection Respiratory: Chest Non Tender, No Accessory Muscle Use, No Respiratory Distress, Crackles (bilateral lower lobes) Cardiovascular: Regular Rate, Rhythm, No Edema, No Murmur, Normal Peripheral Pulses Gastrointestinal: No Organomegaly, No Pulsatile Mass, Non Tender, Soft, Abnormal Bowel Sounds (hypoactive in lower quadrants bilaterally), Distended, Hernia (midline epigastric region), Mass Back: Normal Inspection Extremity: Normal Capillary Refill, Normal Inspection, Normal Range of Motion, Non Tender, No Pedal Edema Neurologic/Psychiatric: Alert, Oriented x3, No Motor/Sensory Deficits, Normal Mood/Affect, trauma manager II-XII Norm as Tested Skin: Normal Color, Warm/Dry Results Results/Procedures Labs Laboratory Tests 06/15/21 00:20 Patient resulted labs reviewed. Assessment/Plan Assessment and Plan Assess & Plan/Chief Complaint Small Bowel Obstruction Hypertension Hypokalemic Leukocytosis Hyperlipidemia Coronary Artery Disease Anxiety Left Ovarian Cyst Cough Small Bowel Obstruction -Distended fluid-filled stomach and multiple fluid-filled distended loops of proximal and mid small bowel associated with decompressed distal small bowel, consistent with at least partial obstruction. 2.7 cm left ovarian cyst, increased since prior study. Further evaluation on outpatient basis with pelvic ultrasound is recommended. -NG tube placed -NPO -Dr. Modi consulted Hypertension -Currently on Hydralazine Hypokalemia -Will order potassium Leukocytosis -Likely d/t SBO, will continue to monitor Hyperlipidemia -Will continue to monitor, pt normally on medication at home. Coronary Artery Disease -Stent placed years ago. Anxiety -Well managed with Lorazepam Left Ovarian Cyst -F/u outpt for pelvic ultrasound Cough -Will start Incentive spirometry DVT ppx with SCD's AIME KAMARA MD 06/15/21 1240: HPI Referring Physician Dr Modi Assessment/Plan Assessment and Plan Assess & Plan/Chief Complaint Patient is a 75-year-old female with a history of multiple abdominal surgeries who was admitted due to partial small bowel obstruction to the surgery service. We are consulted for medical management. She reports that her pain is improved and she has had significant decompression with her NG tube. She has no complaints at this time. Her blood pressure has been quite elevated. We will continue IV hydralazine as she is n.p.o. with NG tube to suction. Management per primary. Diagnosis/Problems Diagnosis/Problems (1) Essential (primary) hypertension (2) Small bowel obstruction Status: Acute Supervisory-Addendum Brief Verification & Attestation Participated in pt care: history, MDM, physical Personally performed: exam, history, MDM, supervision of care Care discussed with: Medical Student Procedures: n/a Results interpretation: Verified all documentation Verification and Attestation of Medical Student E/M Service A medical student performed and documented this service in my presence. I reviewed and verified all information documented by the medical student and made modifications to such information, when appropriate. I personally performed the physical exam and medical decision making. Aime Kamara, Jun 15, 2021,12:37 GERMÁN HALL MED STUDENT Jun 15, 2021 10:46 AIME KAMARA MD Jun 15, 2021 12:40
[2021-06-15] MEDS ORDERED: POTASSIUM CL 10MEQ/50ML IVPB 100 ML IV ONE (11:11)
[2021-06-15] MEDS: POTASSIUM CL 10MEQ/50ML IVPB 50 ML IV SCH ×2 (11:13→12:13)
[2021-06-15 11:51] VITALS: BP 182/72
--- NOTE | 2021-06-15 12:13 | CONSULTATION REPORT ---
DATE OF SERVICE: 06/15/2021 ATTENDING PRIMARY CARE PHYSICIAN: Dr. Lenin Nye. HISTORY OF PRESENT ILLNESS: The patient is a 75-year-old female, who reports that she developed an acute onset of increasing abdominal distention and pain yesterday around 7 o'clock in the evening. She reported small amounts of gas and a small bowel movement yesterday and that her last normal bowel movement was the day prior. She does report a history of constipation as well as an abdominal hernia repair with a reoccurrence. She did report that due to her continued pain as well as episode of vomiting, she then presented to the Emergency Department at [facility]. She then underwent lab work where she was found to have a white blood count of 13.7 as well as a CAT scan of the abdomen and pelvis, which did show distended fluid-filled stomach and multiple fluid filled loops of distended small bowel. There also appeared to be decompressed, but somewhat thickened segments of small bowel and findings were consistent with at least partial bowel obstruction and the etiology of the thickened small bowel was indeterminate. There was also a left ovarian cyst and it was recommended to proceed with a followup pelvic ultrasound. She reports today that her pain is better and feels like her abdomen is down; however, she has not been passing any gas or had a bowel movement since being admitted. She denies any nausea or vomiting and reports that she does not have an appetite at this time. MEDICAL HISTORY: Coronary artery disease, hypercholesterolemia, hypertension, arthritis, gastroesophageal reflux disease, anxiety, depression. PAST SURGICAL HISTORY: Cardiac catheterization with a stent placement, bladder surgery, abdominal hernia repair, partial hysterectomy. ALLERGIES: No known drug allergies. MEDICATIONS: aspirin 81 mg, vitamin D, Prilosec, citalopram, pravastatin, Lexapro, losartan, Tylenol. SOCIAL HISTORY: Positive for smoke for 60 pack years. Rare for alcohol. FAMILY HISTORY: Father, hypertension, myocardial infarction. Maternal grandmother, diabetes. VITAL SIGNS: Blood pressure is 180/77, pulse 111, respirations 18, pulse ox 96% on room air, temperature 37.1 degrees Celsius. REVIEW OF SYSTEMS: A well-nourished female in no acute distress. She is not experiencing any shortness of breath or difficulty breathing. No chest pain, palpitations or diaphoresis. She denies any nausea, but did report an episode of vomiting yesterday as well as abdominal pain and distention; however, this has resolved. No diarrhea, but does report history of constipation. No red blood per rectum. No dark tarry stools. No fever or chills. No recent inadvertent weight loss. All other review of systems negative. PHYSICAL EXAMINATION: CHEST: Clear. Good breath sounds bilaterally. HEART: Regular, no murmurs. EXTREMITIES: No lower extremity edema. Negative Homans sign. HEENT: No scleral icterus. NECK: No cervical lymphadenopathy. ABDOMEN: Soft with some mild distention and mild tenderness upon palpation. No palpable masses. No peritoneal signs. SKIN: Warm, dry and pink. NEUROLOGIC: Awake, alert and oriented x3. LABORATORY DATA: WBC 13.7, HGB 16, hematocrit 48, platelets 281. Sodium 141, potassium 3.4, chloride 106, BUN 22, creatinine 1.05, GFR 51. ASSESSMENT AND PLAN: A 75-year-old female with a small-bowel obstruction. At this time, we will proceed with conservative management with bowel decompression with NG tube as well as bowel rest and IV fluids as well as pain and nausea medication as needed. Once her pain has improved and she is having more bowel function, then we will proceed with removal of the NG tube and advancement of her diet. Job ID: [id number] DocumentID: [id number] Dictated Date: 06/15/2021 10:34:14 Low Pressure Boiler Tender Date: 06/15/2021 11:43:03 Dictated By: MIREYA ATKINS
[2021-06-15 15:51] VITALS: BP 185/75
[2021-06-15 19:41] VITALS: BP 180/79
[2021-06-15] MEDS: fentaNYL INJ 100 MCG/2 ML AMP IVP PRN (21:37)
[2021-06-16] VITALS (7 sets, daily range): BP systolic 130–209; BP diastolic 51–71
[2021-06-16] MEDS: hydrALAZINE (APESOLINE) 20 MG/ML VIAL IV PRN (00:23)
[2021-06-16] MEDS: fentaNYL INJ 100 MCG/2 ML AMP IVP PRN (05:30)
[2021-06-16 05:51] LABS: POTASSIUM 3.8 MMOL/L (3.6-5.0)
[2021-06-16 05:52] LABS: CALCIUM 9.6 MG/DL (8.5-10.1)
[2021-06-16 05:57] LABS: CREATININE SERUM 0.72 MG/DL (0.60-1.30)
[2021-06-16 05:59] LABS: MAGNESIUM 2.1 MG/DL (1.6-2.4)
[2021-06-16] MEDS ORDERED: MAGNESIUM 1 GM/100 ML IVPB 100 ML IV SCH (06:00)
[2021-06-16] MEDS ORDERED: KCL 20 MEQ TAB (K-DUR) PO SCH (06:00)
[2021-06-16] MEDS ORDERED: POTASSIUM CL 10MEQ/50ML IVPB 50 ML IV SCH (06:00)
[2021-06-16] MEDS: PANTOPRAZOLE 40 MG (PROTONIX) VIAL IV SCH (08:09)
[2021-06-16] MEDS ORDERED: KETOROLAC 30 MG/ML VIAL IVP ONE (08:30)
--- NOTE | 2021-06-16 09:30 | Progress Note - Hospitalist ---
GERMÁN HALL A MED STUDENT 06/16/21 0930: Subjective HPI/CC On Admission Date Seen by Provider: Jun 16, 2021 Time Seen by Provider: 07:45 75 yo female admitted from ED d/t diffuse abdominal pain that started last noc and was not relieved by BM. Pt reports pain is currently 0/10, but at its worst is a 7/10. Last BM was yesterday around 1700 and was small and solid. Pt denies passing gas. Pt reports hx of constipation and abdominal hernia. Pt states she last ate at 1900 last noc and currently does not have an appetite. Denies N/V/D. Subjective/Events-last exam Pt up in bed this morning doing well. Pt reports she is feeling better today, no abdominal pain. Denies passing gas, but had large soft BM yesterday. Denies appetite. Pt reports headache since last noc. Her blood pressure was high throug h the night. Review of Systems General: No Chills, No Night Sweats, No Fatigue, No Malaise; Appetite; No Other HEENT: Head Aches Pulmonary: No Dyspnea; Cough; No Pleuritic Chest Pain; Other Cardiovascular: No: Chest Pain, Palpitations Gastrointestinal: No: Nausea, Vomiting, Abdominal Pain, Diarrhea, Constipation Genitourinary: No Dysuria, No Frequency; Other Objective Exam Vital Signs Vital Signs Date Time Temp Pulse Resp B/P (MAP) Pulse Ox O2 Delivery O2 Flow Rate FiO2 06/16/21 08:00 Room Air 06/16/21 08:00 37.4 88 20 191/70 (110) 95 Capillary Refill : Less Than 3 Seconds General Appearance: No Apparent Distress, WD/WN HEENT: PERRL/EOMI Neck: Full Range of Motion, Normal Inspection Respiratory: Chest Non Tender, Normal Breath Sounds, No Accessory Muscle Use, No Respiratory Distress, Crackles, Decreased Breath Sounds Cardiovascular: Regular Rate, Rhythm, No Murmur, Normal Peripheral Pulses Gastrointestinal: Non Tender, Abnormal Bowel Sounds (hypoactive), Other Back: Normal Inspection Extremity: Normal Capillary Refill, Normal Inspection, Normal Range of Motion, Non Tender, No Calf Tenderness, No Pedal Edema Neurologic/Psychiatric: Alert, Oriented x3, No Motor/Sensory Deficits, Normal Mood/Affect, liquor merchant II-XII Norm as Tested Skin: Normal Color, Warm/Dry Results/Procedures Lab Laboratory Tests 06/16/21 05:10 Patient resulted labs reviewed. Assessment/Plan Assessment and Plan Assess & Plan/Chief Complaint Small Bowel Obstruction Hypertension Hypokalemia Leukocytosis Hyperlipidemia Coronary Artery Disease Anxiety Left Ovarian Cyst Cough Small Bowel Obstruction -Distended fluid-filled stomach and multiple fluid-filled distended loops of proximal and mid small bowel associated with decompressed distal small bowel, consistent with at least partial obstruction. 2.7 cm left ovarian cyst, increased since prior study. Further evaluation on outpatient basis with pelvic ultrasound is recommended. -Dr. Modi consulted -NG tube removed this morning -Clear Liquid Diet Hypertension -Will restart home medications. Hypokalemia -Improving, will continue to monitor Leukocytosis -Likely d/t SBO, will continue to monitor Hyperlipidemia -Will continue to monitor, pt normally on medication at home. Coronary Artery Disease -Stent placed years ago. Anxiety -Well managed with Lorazepam Left Ovarian Cyst -F/u outpt for pelvic ultrasound Cough -Will start Incentive spirometry DVT ppx with SCD's AMADA KAMARA MD 06/16/21 1244: Assessment/Plan Assessment and Plan Assess & Plan/Chief Complaint Patient reports feeling better today. NGT out and no fruther pain. Had a BM last night. No flatus yet though. Currently on CLD. Will add home antihypertensives. BP improved to SBP 130 this afternoon. Will sign off and round prn. Supervisory-Addendum Brief Verification & Attestation Participated in pt care: history, MDM, physical Personally performed: exam, history, MDM, supervision of care Care discussed with: Medical Student Procedures: n/a Results interpretation: Verified all documentation Verification and Attestation of Medical Student E/M Service A medical student performed and documented this service in my presence. I reviewed and verified all information documented by the medical student and made modifications to such information, when appropriate. I personally performed the physical exam and medical decision making. Amada Kamara, Jun 16, 2021,12:43 GERMÁN HALL MED STUDENT Jun 16, 2021 09:30 AMADA KAMARA MD Jun 16, 2021 12:44
[2021-06-16] MEDS ORDERED: NITROGLYCERIN 2% OINT 1 GM UNIT DOSE PACKET TOP PRN (10:00)
[2021-06-16] MEDS ORDERED: ACET325T38 PO (10:48)
[2021-06-16] MEDS ORDERED: ESCI20TA39 PO (10:48)
[2021-06-16] MEDS ORDERED: ASPI-1238 PO (10:48)
[2021-06-16] MEDS ORDERED: PRAV40TA2 PO (10:48)
[2021-06-16] MEDS ORDERED: CHOL-34 PO (10:48)
[2021-06-16] MEDS ORDERED: LOSA100T57 PO (10:48)
[2021-06-16] MEDS ORDERED: FURO20TA4 PO (10:48)
[2021-06-16] MEDS ORDERED: ZOLP10TA PO (10:48)
[2021-06-16] MEDS ORDERED: TIZA-169 PO (10:48)
[2021-06-16] MEDS ORDERED: NON-FORMULARY MEDICATION 1 EA EA (Zolpidem Tartrate (Ambien) 10 MG) PO PRN (12:45)
[2021-06-16] MEDS ORDERED: ACETAMINOPHEN 325 MG TABLET PO PRN (12:45)
[2021-06-16] MEDS ORDERED: ZOLPIDEM 5 MG (AMBIEN) TAB PO PRN (13:00)
--- NOTE | 2021-06-16 13:24 | Progress Note ---
Subjective Date Seen by a Provider: Jun 16, 2021 Time Seen by a Provider: 13:00 Subjective/Events-last exam doing better. having bm's. tolerating clears. no abd pain or distention. Objective Exam Vital Signs Date Time Temp Pulse Resp B/P (MAP) Pulse Ox O2 Delivery O2 Flow Rate FiO2 06/16/21 11:33 36.6 77 20 130/51 (77) 97 Room Air 06/16/21 08:00 Room Air 06/16/21 08:00 37.4 88 20 191/70 (110) 95 Room Air 06/16/21 03:41 36.4 85 17 182/71 (108) 97 Room Air 06/16/21 01:08 97 182/61 (101) 06/16/21 00:43 36.6 100 18 209/71 (117) 96 Room Air 06/15/21 20:00 Room Air 06/15/21 19:41 36.7 83 22 180/79 (112) 94 Room Air 06/15/21 15:51 36.7 86 18 185/75 (111) 95 Room Air I & O 06/16/21 07:00 Intake Total 1100 ml Output Total 2000 ml Balance -900 ml Capillary Refill : Less Than 3 Seconds General Appearance: No Apparent Distress HEENT: PERRL/EOMI Neck: Full Range of Motion Respiratory: Chest Non Tender, Lungs Clear Cardiovascular: Regular Rate, Rhythm Gastrointestinal: normal bowel sounds, non tender, soft Extremity: Normal Capillary Refill Neurologic/Psychiatric: Alert, Oriented x3 Skin: Normal Color Lymphatic: No Adenopathy Results Lab Laboratory Tests 06/16/21 05:10: Sodium Level 138, Potassium Level 3.8, Chloride Level 107, Carbon Dioxide Level 21, Anion Gap 10, Blood Urea Nitrogen 10, Creatinine 0.72, Estimat Glomerular Filtration Rate 79, BUN/Creatinine Ratio 14, Glucose Level 130H, Calcium Level 9.6, Magnesium Level 2.1 Assessment/Plan Assessment/Plan Assess & Plan/Chief Complaint PSBO. resolving. start dys3 diet. ambulate. KRISTINA HUTCHINSON MD Jun 16, 2021 13:24
[2021-06-16] MEDS ORDERED: KETOROLAC 15 MG/ML VIAL IVP PRN (14:30)
[2021-06-16] MEDS ORDERED: KETOROLAC 30 MG/ML VIAL IVP PRN (14:30)
[2021-06-16] MEDS ORDERED: OXYC1TAB11 PO (14:34)
--- NOTE | 2021-06-16 14:35 | Discharge Inst-Surgical ---
D/C Lap Instructions-KIDO New, Converted, or Re-Newed RX: RX on Chart Follow Up PRN Activity as tolerated low residue diet next 2 weeks then regular diet. Avoid Alcohol, Caffeine, Spicy [place] and Acid foods. Drink 64 fluid oz or more of fluids per day. Symptoms to Report: Fever over 101 degree F, Nausea/Vomiting If any problems/questions: Contact your physician or go to Emergency Room KRISTINA HUTCHINSON MD Jun 16, 2021 14:35
[2021-06-16] MEDS ORDERED: NON-FORMULARY MEDICATION 1 EA EA (Pravastatin Sodium 40 MG) PO SCH (21:00)
[2021-06-16] MEDS ORDERED: LOSARTAN 100 MG (COZAAR) TABLET PO SCH (21:00)
[2021-06-16] MEDS ORDERED: NON-FORMULARY MEDICATION 1 EA EA (Escitalopram Oxalate 20 MG) PO SCH (21:00)
[2021-06-16] MEDS ORDERED: SIMvastatin 20 MG (ZOCOR) TAB PO SCH (21:00)
[2021-06-16] MEDS ORDERED: NON-FORMULARY MEDICATION 1 EA EA (Tizanidine HCl 2 MG) PO SCH (21:00)
[2021-06-17] MEDS ORDERED: ASPIRIN E.C. 81 MG (ECOTRIN) TAB PO SCH (09:00)
[2021-06-17] MEDS ORDERED: VITAMIN D3 25 MCG (1,000 UNITS) TABLET PO SCH (09:00)
== END 2021-06-16 17:04 | disposition home or self-care (01) | DRG 390 ==
LOC: EDUNIT# 23:44 → ER 23:46 → 4TH 06-15 04:07
PROVIDERS: ADMIT Surgery; ATTEND Surgery
PROC: 0D9670Z Drainage of Stomach with Drainage Device, Via Natural or Artificial Opening (ICD-10-PCS; principal; 2021-06-15)
DX: K56.600 Partial intestinal obstruction, unspecified as to cause (principal); I10 Essential (primary) hypertension; E87.6 Hypokalemia; E78.5 Hyperlipidemia, unspecified; I25.10 Atherosclerotic heart disease of native coronary artery without angina pectoris; F41.9 Anxiety disorder, unspecified; N83.202 Unspecified ovarian cyst, left side; R05 Cough; D72.829 Elevated white blood cell count, unspecified; E78.00 Pure hypercholesterolemia, unspecified; K21.9 Gastro-esophageal reflux disease without esophagitis; F32.9 Major depressive disorder, single episode, unspecified; K46.9 Unspecified abdominal hernia without obstruction or gangrene; F17.210 Nicotine dependence, cigarettes, uncomplicated; Z95.5 Presence of coronary angioplasty implant and graft; Z79.82 Long term (current) use of aspirin; Z79.899 Other long term (current) drug therapy
CPT/HCPCS: 36415; 74177; 80048; 80053; 81000; 83735; 85025; 86141; 94664

== ENCOUNTER → 2021-07-15 | Outpatient (CLI) | payer MEDICARE, OTHER ==
[~2021-07-15] MED LIST: ACET325T38 PO; ASPI-1238 PO; CHOL-34 PO; ESCI20TA39 PO; FURO20TA4 PO; LOSA100T57 PO; OXYC1TAB11 PO; PRAV40TA2 PO; TIZA-169 PO; ZOLP10TA PO
== END ==
LOC: CARD 14:08
PROVIDERS: ATTEND Internal Medicine Cardiovascular Disease
DX: I10 Essential (primary) hypertension (principal); I08.2 Rheumatic disorders of both aortic and tricuspid valves
CPT/HCPCS: 93306

== ENCOUNTER → 2021-08-31 | Outpatient (CLI) | payer MEDICARE, OTHER ==
[~2021-08-31] MED LIST changes: +CATHETER FLUSH 10 ML SYR IV PRN; +REGADENOSON 0.4 MG/5 ML SYR (LEXISCAN) IV ONE
[2021-08-31 09:02] VITALS: BP 215/71
--- NOTE | 2021-08-31 12:05 | Cardiology Stress Test Report ---
Stress Test Report Date of Procedure/Referring: Date of Procedure: Aug 31, 2021 PCP Karol Germain MD Admitting Physician Lenin Nye MD Indications: HTN Baseline Heart Rate: 51 Baseline Blood Pressure: Blood Pressure Systolic: 215 Blood Pressure Diastolic: 71 Baseline Vitals Vital Signs Date Time Temp Pulse Resp B/P (MAP) Pulse Ox O2 Delivery O2 Flow Rate FiO2 08/31/21 09:02 51 215/71 (119) Baseline EKG: Baseline EKG: NSR Summary After explaining the procedure to the patient, she signed a consent and then brought to the stress nuclear laboratory. Patient received 0.4 mg Lexiscan for stress test, ECG, heart rate and blood pressure were monitored continuously. Resting and stress dose of radio tracer were injected, imaging was acquired and reviewed in short axis, horizontal long axis and vertical long axis views. TID: 0.99 SSS: 4 SDS: 4 EF: 64 1. Patient tolerated Lexiscan well 2. Baseline hypertension with blood pressure 215/71 persisted during test 3. Breast attenuation with mild decrease uptake involving the mid to apical anterior wall with mild reversibility 4. Normal left ventricular size, EF 64% KAROL GERMAIN MD Aug 31, 2021 12:05
== END ==
LOC: CARD 07:30
PROVIDERS: ATTEND Internal Medicine Cardiovascular Disease
DX: I10 Essential (primary) hypertension (principal)
CPT/HCPCS: 78452; 93017; A9502

== ENCOUNTER 2021-09-16 08:00 | Day surgery (SDC) | payer MEDICARE, OTHER ==
[2021-09-16] VITALS (11 sets, daily range): BP systolic 114–198; BP diastolic 71–91
[~2021-09-16] VITALS: Ht 160 cm; Wt 74.2 kg
[2021-09-16 07:27] LABS: HEMATOCRIT 46 % (35-52); HEMOGLOBIN 15.1 g/dL (11.5-16.0); MEAN CORPUSCULAR HEMOGLOBIN 31 pg (25-34); MEAN CORPUSCULAR HGB CONC 33 g/dL (32-36); MEAN CORPUSCULAR VOLUME 94 fL (80-99); MEAN PLATELET VOLUME 10.5 fL (9.0-12.2); PLATELET COUNT 257 10^3/uL (130-400)
[2021-09-16 07:28] LABS: BILIRUBIN,URINE NEGATIVE (NEGATIVE); CLARITY,URINE CLOUDY; COLOR,URINE YELLOW; GLUCOSE, URINE (UA) NEGATIVE (NEGATIVE); KETONES,URINE NEGATIVE (NEGATIVE); LEUKOCYTE ESTERASE ,URINE NEGATIVE (NEGATIVE); NITRITE,URINE NEGATIVE (NEGATIVE); PROTEIN,URINE NEGATIVE (NEGATIVE)
[2021-09-16 07:38] LABS: BACTERIA,URINE MODERATE /HPF; WBC,URINE 0-2 /HPF
--- NOTE | 2021-09-16 07:40 | Diagnostic Imaging Report ---
HISTORY: Abnormal stress test, coronary artery disease COMPARISON: 08/20/2016 TECHNIQUE: Frontal view of the chest. FINDINGS: Lung volumes are normal. No consolidation is seen. There is no pleural effusion or pneumothorax. The cardiac silhouette appears normal in size. IMPRESSION: 1. No acute pulmonary abnormality is seen. Dictated by: Dictated on workstation # [id number]
[2021-09-16 07:48] LABS: ALBUMIN 3.9 GM/DL (3.2-4.5); BILIRUBIN,TOTAL 0.5 MG/DL (0.1-1.0); CALCIUM 9.9 MG/DL (8.5-10.1); CREATININE SERUM 0.92 MG/DL (0.60-1.30); POTASSIUM 3.8 MMOL/L (3.6-5.0)
[2021-09-16 07:52] LABS: INR 0.9 (0.8-1.4); PROTHROMBIN TIME PATIENT 12.9 SEC (12.2-14.7)
[~2021-09-16 08:00] MED LIST changes: +ACET-168 PO; -CATHETER FLUSH 10 ML SYR IV PRN; +FAMO10TA43 PO; +HEParin (CATH LAB) 2,000 ML IV ONE; +HEParin 1000 UNIT/ML (10ML VIAL) FOR BOLUS ONE; +LIDOCAINE 1% INJ 20 ML 20 ML VIAL ONE; +MIDAZOLAM 5 MG/5 ML (VERSED) VIAL ONE; +NITRO DRIP 25000 MCG/D5W 250 ML IV ONE; +NS IV 1000 ML 1,000 ML IV SCH; +NS IV 1000 ML 1,000 ML ONE; -REGADENOSON 0.4 MG/5 ML SYR (LEXISCAN) IV ONE; +VERAPAMIL 5 MG/2 ML (CALAN) VIAL IV ONE; +fentaNYL INJ 100 MCG/2 ML AMP ONE
--- NOTE | 2021-09-16 08:19 | Conscious Sedation/ASA ---
Conscious Sedation Pre-Proced Time 08:19 ASA Score 3 For ASA 3 and 4: Consider anesthesia and medical clearance. Also, for patients with a history of failed moderate sedation consider anesthesia. Airway Lungs Heart ASA score ASA 1: a normal healthy patient ASA 2: a patient with a mild systemic disease (mid diabetes, controlled hypertension, obesity ASA 3: a patient with a severe systemic disease that limits activity (angina, COPD, prior Myocardial infarction) ASA 4: a patient with an incapacitating disease that is a constant threat to life (CHF, renal failure) ASA 5: a moribund patient not expected to survive 24 hrs. (ruptured aneurysm) ASA 6: a declared brain- patient whose organs are being harvested. For emergent operations, add the letter E after the classification Mallampati Classification Grade 3 Sedation Plan Analgesia, Amnesia, Plan communicated to team members, Discussed options with patient/fam, Discussed risks with patient/fam The patient is an appropriate candidate to undergo the planned procedure, sedation, and anesthesia. The patient immediately re-assessed prior to indication. KAROL MEMBRENO MD Sep 16, 2021 08:19
--- NOTE | 2021-09-16 09:03 | Discharge Inst-Post CATH ---
Discharge Inst-CATH/EP Problems Reviewed?: Yes Post Cardiac Cath/EP D/C Inst Follow Up/Plan Appointment with Dr. Germain's office in 2 to 4 weeks <b>CARDIAC CATH/EP PROCEDURE DISCHARGE INSTRUCTIONS</b> ACTIVITY * Go Home directly and rest. * Limit activity of the leg (or wrist if it was used) for 7 days including aer obics, swimming, jogging, bicycling, etc. * Restrict stair-climbing for 7 days if possible, if not, climb up with your non-cath leg, then bring together on the same step. * Avoid lifting, pushing, pulling or excessive movement of the affected extremi ty for 7 days. * Customary sexual activity may be resumed after 2 days-use caution not to use a position that strains or causes pain to the affected extremity. * No driving for 24 hours. * NO SMOKING. * Avoid straining for bowel movements for 7 days. * Gentle walking on level ground is allowed. * Returning to work will depend on the type of procedure and the results. Your doctor will discuss this with you. CALL YOUR DOCTOR FOR ANY OF THE FOLLOWING: *If bleeding from the puncture site occurs- Apply gentle pressure to site with clean cloth and call your doctor or EMS. * If a knot or lump forms under the skin, increases in size, or causes pain. * If bruising appears to be worsening or moving further down your leg instead of disappearing. * Temperature above 101 F. CARE OF YOUR GROIN INCISION; * Bruising or purple discoloration of the skin near the puncture site is common. * You may shower only, no bathtub bathing for 5 days. Be careful to avoid slipping as your leg may feel stiff. * If a closure device was used on your femoral artery, please see the attached guide regarding care of the device and your leg. * Leave dressing on FOR 24 hours. CARE OF YOUR WRIST INCISION; * Bruising or purple discoloration of the skin near the puncture site is common. * You may shower. * DO NOT submerge wrist. * Leave dressing on FOR 24 hours. KAROL GERMAIN MD Sep 16, 2021 09:03
--- NOTE | 2021-09-16 09:06 | Cardiac Cath Report ---
Cardiac Cath Report Physician (s)/Apartment Community Assistant Manager (s) Physician KAROL MEMBRENO MD Pre-Procedure Diagnosis Pre-Procedure Diagnosis: Coronary artery disease Post-Procedure Note Procedure Start Date: Sep 16, 2021 Name of Procedure: Left heart catheterization Findings/Procedure Note PROCEDURE NOTE: 76-year-old lady with history of coronary artery disease, hypertension hyperlipidemia, had an abnormal stress test, scheduled for cardiac catheterization possible PTCA. After explaining the procedure to the patient, all pros and cons were explained, all questions were answered. The patient signed the consent and then she was placed on the cardiac catheterization laboratory. Groin was prepped SL fashion local anesthesia was used. Sheath placed in the right radial artery, [place] catheter was advanced to the left ventricular cavity, pressure was measured, pullback LV to aorta was done, engaged the right and left coronary system, angiogram was done. At the end of the procedure the sheath was removed. Vascular band deployed FINDINGS: Hemodynamics LV 158/29, end-diastolic pressure of 29 Aorta 158/81 mean of 107 ANATOMY: Left Main is free of obstructive disease Left Anterior Descending is slightly tortuous with moderate disease in the mid LAD nonobstructive disease Left Circumflex has mild disease nonobstructive disease Right Coronary Artery is dominant artery, calcified proximally with moderate disease nonobstructive disease LV Gram was not done, pressure was measured CONCLUSION: 1. Calcified proximal right coronary artery with moderate disease proximally, nonobstructive disease, moderate disease in the mid LAD nonobstructive disease 2. Elevated left ventricular end-diastolic pressure DISCUSSION AND RECOMMENDATION: Medical therapy is recommended no intervention is warranted Anesthesia Type: Conscious Sedation Estimated blood loss (mL): 10 ml Contrast Amount: 30 ml Total Radiation Dose: 344 mGy Post-Procedure Diagnosis Post-operative diagnosis: Chest pain Coronary artery disease Hypertension Hyperlipidemia KAROL MEMBRENO MD Sep 16, 2021 09:06
[2021-09-16] MEDS ORDERED: NS IV 1000 ML 1,000 ML IV SCH (09:15)
== END 2021-09-16 12:15 | disposition home or self-care (01) ==
LOC: CATH 08:00 → SDC 09:14 → CATH 12:15
PROVIDERS: ATTEND Internal Medicine Cardiovascular Disease
DX: I25.10 Atherosclerotic heart disease of native coronary artery without angina pectoris (principal); I10 Essential (primary) hypertension; E78.2 Mixed hyperlipidemia; I65.23 Occlusion and stenosis of bilateral carotid arteries; Z79.82 Long term (current) use of aspirin; Z79.899 Other long term (current) drug therapy
CPT/HCPCS: 71045; 80053; 80061; 81000; 85027; 85610; 85730; 87081; 93458; C1894; 36415